=== PATIENT | female | born 2000 | race Two or more races ===

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

== ENCOUNTER 2021-04-28 15:48 | Emergency (ER) | payer MEDICAID ==
[~2021-04-28] VITALS: Ht 167.6 cm; Wt 64.4 kg
[2021-04-28 15:48] VITALS: BP 141/71
== END 2021-04-28 22:05 | disposition home or self-care (01) ==
LOC: ER 15:48
DX: S09.90XA Unspecified injury of head, initial encounter (principal); R55 Syncope and collapse; M54.9 Dorsalgia, unspecified; M54.2 Cervicalgia; E03.9 Hypothyroidism, unspecified; V49.9XXA Car occupant (driver) (passenger) injured in unspecified traffic accident, initial encounter; Y93.89 Activity, other specified; Y92.89 Other specified places as the place of occurrence of the external cause; Y99.8 Other external cause status
CPT/HCPCS: 70450; 72125

== ENCOUNTER 2022-07-23 08:13 | Observation (INO) | payer MEDICAID | END 2022-07-23 09:14 | disposition home or self-care (01) | LOC: LDRP 08:13 → UNDOADMOB 08:13 → LDRP 08:26 → UNDODISOB 09:14 | PROVIDERS: ADMIT Obstetrics & Gynecology; ATTEND Obstetrics & Gynecology | DX: O48.0 Post-term pregnancy (principal); O62.9 Abnormality of forces of labor, unspecified; Z3A.40 40 weeks gestation of pregnancy | CPT/HCPCS: 76818; G0378; 59025; 81002; 94760 ==

== ENCOUNTER 2022-07-25 08:19 | Observation (INO) | payer MEDICAID | END 2022-07-25 10:00 | disposition home or self-care (01) | LOC: UNDOADMOB 08:19 → LDRP 08:19 → UNDODISOB 10:00 | PROVIDERS: ADMIT Obstetrics & Gynecology; ATTEND Obstetrics & Gynecology | DX: O48.0 Post-term pregnancy (principal); O62.9 Abnormality of forces of labor, unspecified; Z3A.40 40 weeks gestation of pregnancy | CPT/HCPCS: 59025; 76818; 81002; G0378 ==

== ENCOUNTER 2022-07-27 05:26 | Inpatient (IN) | payer MEDICAID ==
[~2022-07-27] VITALS: Ht 170.2 cm; Wt 77.1 kg
[2022-07-27] MEDS ORDERED: DERMOPLAST 60ML BOTTLE TOP PRN (05:45)
[2022-07-27] MEDS ORDERED: PHISODERM TOP SOLN 240ML BTL TOP PRN (05:45)
[2022-07-27] MEDS ORDERED: WITCH HAZEL-GLYCERIN PAD TOP PRN (05:45)
[2022-07-27] MEDS ORDERED: LIDOCAINE 2%HCL (LOCAL ANESTH.) INJ 20ML MDV IJ PRN (05:45)
[2022-07-27] MEDS ORDERED: PROMETHAZINE HCL 25 MG/ML 1ML IV PRN (05:45)
[2022-07-27] MEDS ORDERED: BUTORPHANOL TARTRATE 2 MG/1 ML VIAL IV PRN ×2 (05:45)
[2022-07-27] MEDS: LACTATED RINGER'S 1,000 ML IV SCH ×3 (06:00→23:13)
[2022-07-27 06:12] LABS: Basophils # (auto) 0.1 10 ^3/uL (0-0.2); Basophils % (auto) 0.7 % (0.0-2.0); Eosinophils # (auto) 0 10 ^3/uL (0-0.8); Eosinophils % (auto) 0.3 % (0.0-7.0); Hematocrit 31.6 % (36.0-46.0); Hemoglobin 10.6 g/dL (12.2-16.2); Lymphocytes # (auto) 2.1 10 ^3/uL (0.4-5.4); Lymphocytes % (auto) 27.6 % (10.0-50.0); Mean Corpuscular Hemoglobin 27.3 pg (28.0-32.0); Mean Corpuscular Hgb Conc. 33.5 g/dL (32.0-36.0); Mean Corpuscular Volume 81.7 fL (80.0-100.0); Monocytes # (auto) 0.5 10 ^3/uL (0-1.3); Monocytes % (auto) 6.8 % (0.0-12.0); Neutrophils # (auto) 4.9 10 ^3/uL (1.6-8.6); Neutrophils % (auto) 64.6 % (37.0-80.0); Nucleated Red Blood Cells % 0.2 %; Red Blood Cells 3.86 10^6/uL (4.0-5.20); Red Cell Distribution Width 14.1 % (11.8-14.3); White Blood Cell 7.6 10^3/uL (4.4-10.8)
[2022-07-27 06:17] LABS: INR 0.86 (0.9-1.15); Partial Thromboplastin Time 25.4 sec (24.6-33.4)
[2022-07-27 06:25] LABS: Albumin 2.7 g/dL (3.4-5.0); BUN/Creatinine Ratio 21.5 (10.0-20.0); Calcium 8.7 mg/dL (8.5-10.1); Potassium 3.8 mmol/L (3.5-5.1)
[2022-07-27 06:27] LABS: Bilirubin, Total 0.2 mg/dL (0.2-1.0)
[2022-07-27 06:35] LABS: Urine Bacteria FEW /hpf (None Seen); Urine Blood Negative /uL (Negative); Urine Hyaline Cast FEW /lpf (0 - 2); Urine Specific Gravity 1.024 (1.001-1.035); Urine WBC 1 /hpf (0 - 5)
[2022-07-27 06:45] LABS: Alcohol, Urine < 3.0 mg/dL (0-10); Amphetamine Screen, Urine NEGATIVE (NEGATIVE); Barbiturate Scree,Urine NEGATIVE (NEGATIVE); Benzodiazephine Screen, Urine NEGATIVE (NEGATIVE); Cannabinoid Screen, Urine NEGATIVE (NEGATIVE); Cocaine Screen, Urine NEGATIVE (NEGATIVE); Opiate Scree,Urine NEGATIVE (NEGATIVE); Phencyclidine Screen, Urine NEGATIVE (NEGATIVE)
[2022-07-27] MEDS ORDERED: miSOPROStol 50 MCG per PRE-CUT 1/2 TAB PO PRN (07:15)
[2022-07-27] MEDS ORDERED: PREN-96 PO (09:17)
[2022-07-27] MEDS ORDERED: FERR-20 PO (09:17)
[2022-07-27] MEDS ORDERED: LACTATED RINGER'S 1,000 ML IV ONE (12:00)
[2022-07-27] MEDS ORDERED: NALOXONE HCL 0.4 MG/ML VIAL IV ONE (12:00)
[2022-07-27] MEDS ORDERED: LIDOCAINE HCL 2 %PF INJ 10ML AMP IJ PRN (12:00)
[2022-07-27] MEDS ORDERED: ROPIVACAINE HCL 200 ML EPI SCH (12:00)
[2022-07-27] MEDS ORDERED: ePHEDrine SULFATE 50 MG/ML AMP IV ONE (12:00)
[2022-07-27] MEDS ORDERED: TERBUTALINE SULFATE 1 MG/ML 1ML VIAL SC PRN (12:00)
[2022-07-27] MEDS ORDERED: LACT. RINGERS/OXYTOCIN 20UNITS 500 ML IV ONE ×2 (12:45→13:15)
[2022-07-27] MEDS ORDERED: LACT. RINGERS/OXYTOCIN 20UNITS 1,000 ML IV SCH (12:45)
[2022-07-27] MEDS ORDERED: Lidocaine W-Epinephrine 1.5%-1:200,000 INJ 10ml Vial ONE (12:50)
[2022-07-27] MEDS ORDERED: METHYLERGONOVINE MALEATE 0.2 MG/ML AMP IM PRN (13:00)
[2022-07-27] MEDS ORDERED: miSOPROStol 100 mcg TAB SL PRN (13:00)
[2022-07-27] MEDS ORDERED: miSOPROStol 100 mcg TAB PR PRN (13:00)
[2022-07-28] MEDS: IBUPROFEN 600 MG TAB PO PRN ×2 (06:56→20:11)
[2022-07-28 07:00] VITALS: BP 108/58
[2022-07-28 11:30] VITALS: BP 103/51
[2022-07-28] MEDS: ACETAMINOPHEN 325 MG TAB PO PRN (14:26)
[2022-07-28 15:05] VITALS: BP 110/62
[2022-07-28 19:30] VITALS: BP 94/49
[2022-07-28 23:00] VITALS: BP 93/54
[2022-07-29] MEDS: ACETAMINOPHEN 325 MG TAB PO PRN (00:18)
[2022-07-29 03:00] VITALS: BP 96/55
[2022-07-29 06:32] VITALS: BP 109/42
[2022-07-29] MEDS ORDERED: MEASLES, MUMPS & RUBELLA VAC(MMRII) 0.5ML SC ONE (10:30)
[2022-07-29 10:55] VITALS: BP 111/57
[2022-07-29 12:07] LABS: RPR Non Reactive (Non Reactive)
[2022-07-29 12:11] VITALS: BP 111/57
== END 2022-07-29 12:11 | disposition home or self-care (01) | DRG 560 ==
LOC: LDRP 05:26
PROVIDERS: ADMIT Obstetrics & Gynecology; ATTEND Obstetrics & Gynecology
PROC: 10E0XZZ Delivery of Products of Conception, External Approach (ICD-10-PCS; principal; 2022-07-28)
PROC: 3E0DXGC Introduction of Other Therapeutic Substance into Mouth and Pharynx, External Approach (ICD-10-PCS; 2022-07-28)
PROC: 0HQ9XZZ Repair Perineum Skin, External Approach (ICD-10-PCS; 2022-07-28)
PROC: 3E0R3BZ Introduction of Anesthetic Agent into Spinal Canal, Percutaneous Approach (ICD-10-PCS; 2022-07-28)
PROC: 00HU33Z Insertion of Infusion Device into Spinal Canal, Percutaneous Approach (ICD-10-PCS; 2022-07-28)
DX: O48.0 Post-term pregnancy (principal); Z37.0 Single live birth; O70.0 First degree perineal laceration during delivery; O77.0 Labor and delivery complicated by meconium in amniotic fluid; Z20.822 Contact with and (suspected) exposure to COVID-19; Z3A.40 40 weeks gestation of pregnancy
CPT/HCPCS: 36415; 59025; 59409; 62282; 80053; 80307; 81001; 85025; 85610; 85730; 86592; 86850; 86900; 86901; 87426; 94760; 96360; 96361; 96365; 96366; 96372; 96374; 96375; G0378; J2590